=== PATIENT | female | born 1960 | race Caucasian/White ===

== ENCOUNTER → 2016-07-30 | Outpatient (CLI) | payer OTHER ==
[2016-07-30 10:22] LABS: Basophils % (A) 1 %; CH 32.5; CHCM 33.8; Eosinophils # (A) 0.2 k/uL (0-0.7); Eosinophils % (A) 4 %; HCT 43.8 % (34.0-46.0); HDW 2.53; HGB 14.3 gm/dL (11.4-16.0); Luc # (Auto) 0.09; Luc % (Auto) 2; Lymphocytes # (A) 1.2 k/uL (1.0-4.8); Lymphocytes % (A) 27 %; MCH 31.5 pg (25.0-35.0); MCHC 32.7 g/dL (31.0-37.0); MCV 96.3 fL (80.0-100.0); Mean Platelet Volume 6.7; Monocytes # (A) 0.3 k/uL (0-1.0); Monocytes % (A) 6 %; Neutrophils # (A) 2.6 k/uL (1.3-7.7); Neutrophils % (A) 61 %; RBC 4.54 m/uL (3.80-5.40); RDW 12.4 % (11.5-15.5); WBC 4.3 k/uL (3.8-10.6); WBC (Perox) 4.43
[2016-07-30 11:19] LABS: ALT 81 U/L (9-52); AST 51 U/L (14-36); Alkaline Phosphatase 94 U/L (38-126); Anion Gap 12 mmol/L; Blood Urea Nitrogen 14 mg/dL (7-17); Calcium 9.6 mg/dL (8.4-10.2); Carbon Dioxide 22 mmol/L (22-30); Chloride 111 mmol/L (98-107); Glucose 121 mg/dL (74-99); Non-African American GFR(MDRD) >60 (>60 ml/min/1.73 sqM); Potassium 4.5 mmol/L (3.5-5.1); Sodium 145 mmol/L (137-145); Total Bilirubin 0.6 mg/dL (0.2-1.3); Total Protein 7.5 g/dL (6.3-8.2)
== END | disposition home or self-care (01) ==
LOC: LABWHC1 09:21
PROVIDERS: ATTEND Internal Medicine Medical Oncology
DX: C50.811 Malignant neoplasm of overlapping sites of right female breast (principal); B19.20 Unspecified viral hepatitis C without hepatic coma
CPT/HCPCS: 36415; 80053; 85025; 86300

== ENCOUNTER 2018-02-13 20:58 | Emergency (ER) | payer OTHER ==
[2018-02-13 21:06] VITALS: BP 141/79; PULSE 96; RESP 18; TEMP 98.9
--- NOTE | 2018-02-13 21:23 | ED ---
Lower Extremity Injury HPI - General Chief Complaint: Extremity Injury, Lower Stated Complaint: foot injury Time Seen by Provider: 02/13/18 21:09 Source: patient, RN notes reviewed Mode of arrival: ambulatory Limitations: no limitations - History of Present Illness Initial Comments: This is a 57-year-old female who presents to the emergency department with chief complaint of right foot injury. Patient reports yesterday her and her were moving a picnic table with his truck. She states that tree branches were in the way so to prevent them from scratching the truck, she was standing pushing them out of the way as he drove through with the picnic table. She states that as he drove by, the truck tire caught the back of her boot and constricted onto her foot. Patient states that she was wearing laced up boots and the laces became tight on her foot.. She denies the tire actually hitting her foot. She states that since that time she has had pain with bearing weight and ambulating. She states that the swelling has progressively worsened. She states the pain is at the lateral aspect of the right foot. Denies any other injuries or trauma. Denies fever, chills, chest pain, shortness of breath, abdominal pain, nausea or vomiting, numbness or tingling, headache or vision changes. - Related Data Allergies Allergy/AdvReac Type Severity Reaction Status Date / Time No Known Allergies Allergy Verified 02/13/18 21:06 Review of Systems ROS Statement: Those systems with pertinent positive or pertinent negative responses have been documented in the HPI. ROS Other: All systems not noted in ROS Statement are negative. Past Medical History Past Medical History: Cancer Additional Past Medical History / Comment(s): breast History of Any Multi-Drug Resistant Organisms: None Reported Past Surgical History: Adenoidectomy, Breast Surgery, Tonsillectomy Past Psychological History: No Psychological Hx Reported Smoking Status: Current every day smoker Past Alcohol Use History: Daily Past Drug Use History: Marijuana General Exam - General Exam Comments Initial Comments: General: Awake and alert, well-developed; in no apparent distress. HEENT: Head atraumatic, normocephalic. Pupils are equal, round and reactive to light. Extraocular movements intact. Oropharynx moist without erythema or exudate. Neck: Supple. Normal ROM. Cardiovascular: Regular rate and rhythm. No murmurs, rubs or gallops. Chest symmetrical. Respiratory: Lungs clear to auscultation bilaterally. No wheezes, rales or rhonchi. Normal respiratory effort with no use of accessory muscles. Musculoskeletal: Normal ROM of right foot and ankle however pain is elicited with plantar flexion. There is ecchymosis and generalized soft tissue swelling to the lateral aspect of the proximal right foot. No obvious gross deformities. Sensation is intact. Pedal pulses are 2+ equal and palpable bilaterally. Skin: [place], warm and dry. Neurological: Alert and oriented x3. CN II-XII grossly intact. Speech is fluent and answers are appropriate. No focal neuro deficits. Psychiatric: Normal mood and affect. No overt signs of depression or anxiety noted. Limitations: no limitations Course Vital Signs 02/13/18 21:03 Temperature 98.9 F Pulse Rate 96 Respiratory 18 Rate Blood Pressure 141/79 O2 Sat by Pulse 98 Oximetry Medical Decision Making - Medical Decision Making This is a 57-year-old female who presents to the emergency department with chief complaint of right foot injury. Patient reports pain and swelling to the foot after her 's truck tire became stuck on her boot causing it to constrict around her foot. Patient is bearing weight and ambulating, however pain is elicited. There is generalized soft tissue swelling and ecchymosis at the lateral aspect of the right ankle. X-rays of the foot and ankle were obtained which revealed no acute abnormalities. Recommend rest, ice, elevation and ibuprofen or Tylenol as needed. Recommended follow-up with orthopedics if no improvement of symptoms within the next 1 week. Patient's vitals are stable and she is in no acute distress. She will be discharged home at this time. All questions were answered. - Radiology Data Radiology results: report reviewed, image reviewed X-ray right ankle impression: No acute abnormality of the right ankle. X-ray right foot impression: Negative right foot exam. Disposition Clinical Impression: Contusion of right foot Disposition: HOME SELF-CARE Condition: Good Instructions: Foot Contusion (ED) Additional Instructions: Please follow-up with orthopedics if no improvement of symptoms within 1 week. Please follow up with primary care provider within 1-2 days. Return to emergency department if symptoms should worsen or any concerns arise. Is patient prescribed a controlled substance at d/c from ED?: No Referrals: None,Stated [Primary Care Provider] - 1-2 days Ishan Bojorquez MD [STAFF PHYSICIAN] - 1-2 days Time of Disposition: 21:54
--- NOTE | 2018-02-13 21:46 | XR ---
EXAMINATION TYPE: XR ankle complete RT DATE OF EXAM: 02/13/2018 COMPARISON: NONE HISTORY: Ankle pain TECHNIQUE: 3 views FINDINGS: There is some deformity of the distal fibula consistent with old healed fracture. I see no acute fracture nor dislocation. Ankle mortise is anatomic. IMPRESSION: No acute abnormality of the right ankle.
--- NOTE | 2018-02-13 21:47 | XR ---
EXAMINATION TYPE: XR foot complete RT DATE OF EXAM: 02/13/2018 COMPARISON: NONE HISTORY: Ankle pain TECHNIQUE: 3 views FINDINGS: I see no fracture nor dislocation. Metatarsals are intact. Joint spaces are fairly normal. IMPRESSION: Negative right foot exam.
== END 2018-02-13 22:07 | disposition home or self-care (01) ==
LOC: EC 20:58
DX: S90.31XA Contusion of right foot, initial encounter (principal); F17.200 Nicotine dependence, unspecified, uncomplicated; Z85.3 Personal history of malignant neoplasm of breast; Z98.890 Other specified postprocedural states; W49.09XA Other specified item causing external constriction, initial encounter; Y93.89 Activity, other specified
CPT/HCPCS: 99283

== ENCOUNTER 2021-02-26 07:14 | Observation (INO) | payer OTHER ==
[2021-02-26] MEDS ORDERED: ACETAMINOPHEN TAB 325 MG TAB PO PRN (07:35)
[2021-02-26] MEDS ORDERED: ACETAMINOPHEN TAB 325 MG TAB PO STA (07:35)
[2021-02-26] MEDS ORDERED: ALBUTEROL HFA INHALER INHALATION PRN (07:35)
[2021-02-26] MEDS ORDERED: ALBUTEROL HFA INHALER INHALATION STA (07:35)
--- NOTE | 2021-02-26 07:37 | ED ---
General Adult HPI - General Chief complaint: Upper Respiratory Infection Stated complaint: Cough Time Seen by Provider: 02/26/21 07:29 Source: patient, RN notes reviewed Mode of arrival: ambulatory Limitations: no limitations - History of Present Illness Initial comments: Patient is a pleasant 60-year-old female presenting to the emergency Department with cough. Symptoms started following patient vomiting or house for bugs 2 days ago. Patient does have cough. Patient states when she coughs a lot there may be minimal shortness of breath associated. Patient feels slightly achy. No fevers at home. No history of chronic lung problems however patient is a smoker. No leg pain or leg swelling. Patient feels like she can taste the bug spray in her mouth still. Patient has not been immunized for COVID-19 infection - Related Data Allergies Allergy/AdvReac Type Severity Reaction Status Date / Time No Known Allergies Allergy Verified 02/13/18 21:06 Review of Systems ROS Statement: Those systems with pertinent positive or pertinent negative responses have been documented in the HPI. ROS Other: All systems not noted in ROS Statement are negative. Constitutional: Denies: fever Eyes: Denies: eye pain ENT: Denies: ear pain Respiratory: Reports: as per HPI, cough Cardiovascular: Denies: chest pain Endocrine: Denies: fatigue Gastrointestinal: Denies: abdominal pain Genitourinary: Denies: urgency Musculoskeletal: Denies: back pain Skin: Denies: rash Neurological: Denies: weakness Past Medical History Past Medical History: Cancer Additional Past Medical History / Comment(s): breast History of Any Multi-Drug Resistant Organisms: None Reported Past Surgical History: Adenoidectomy, Breast Surgery, Tonsillectomy Past Psychological History: No Psychological Hx Reported Smoking Status: Current every day smoker Past Alcohol Use History: Daily Past Drug Use History: Marijuana General Exam Limitations: no limitations General appearance: alert, in no apparent distress Head exam: Present: normocephalic Eye exam: Present: normal appearance Neck exam: Present: normal inspection Respiratory exam: Present: wheezes Cardiovascular Exam: Present: tachycardia GI/Abdominal exam: Present: soft. Absent: tenderness Extremities exam: Present: normal inspection. Absent: pedal edema, calf tenderness Neurological exam: Present: alert Psychiatric exam: Present: normal affect, normal mood Skin exam: Present: normal color Course Vital Signs 02/26/21 02/26/21 07:19 07:33 Temperature 99.7 F H Pulse Rate 122 H Respiratory 20 23 Rate Blood Pressure 128/79 O2 Sat by Pulse 88 L Oximetry EKG Findings - EKG Comments: EKG Findings:: Sinus tachycardia with rate of 118. MS 128. QRS 74. QT 3:30. QTC 462. Normal axis. Normal QRS. Nonspecific ST-T. Medical Decision Making - Medical Decision Making Patient reevaluated and feels somewhat better. Pulse ox 94% on 2 L nasal cannula. Patient updated. Case discussed with Dr. De Souza, who will admit covering hospital call. - Lab Data Result diagrams: 02/26/21 07:50 02/26/21 07:50 Lab Results 02/26/21 02/26/21 02/26/21 Range/Units 07:50 07:50 07:50 WBC 13.0 H (3.8-10.6) k/uL RBC 4.73 (3.80-5.40) m/uL Hgb 16.0 (11.4-16.0) gm/dL Hct 45.5 (34.0-46.0) % MCV 96.2 (80.0-100.0) fL MCH 33.8 (25.0-35.0) pg MCHC 35.1 (31.0-37.0) g/dL RDW 11.9 (11.5-15.5) % Plt Count 223 (150-450) k/uL MPV 7.1 Neutrophils % 80 % Lymphocytes % 13 % Monocytes % 5 % Eosinophils % 1 % Basophils % 0 % Neutrophils # 10.3 H (1.3-7.7) k/uL Lymphocytes # 1.7 (1.0-4.8) k/uL Monocytes # 0.7 (0-1.0) k/uL Eosinophils # 0.1 (0-0.7) k/uL Basophils # 0.0 (0-0.2) k/uL Sodium 138 (137-145) mmol/L Potassium 4.5 (3.5-5.1) mmol/L Chloride 107 (98-107) mmol/L Carbon Dioxide 21 L (22-30) mmol/L Anion Gap 10 mmol/L BUN 13 (7-17) mg/dL Creatinine 0.76 (0.52-1.04) mg/dL Est GFR (CKD-EPI)AfAm >90 (>60 ml/min/1.73 sqM) Est GFR (CKD-EPI)NonAf 86 (>60 ml/min/1.73 sqM) Glucose 123 H (74-99) mg/dL Plasma Lactic Acid Frank 1.1 (0.7-2.0) mmol/L Calcium 9.9 (8.4-10.2) mg/dL Magnesium 1.9 (1.6-2.3) mg/dL Total Bilirubin 1.1 (0.2-1.3) mg/dL AST 48 H (14-36) U/L ALT 62 H (4-34) U/L Alkaline Phosphatase 97 (38-126) U/L Lactate Dehydrogenase 712 H (313-618) U/L C-Reactive Protein 1.3 H (<1.0) mg/dL Total Protein 7.9 (6.3-8.2) g/dL Albumin 4.5 (3.5-5.0) g/dL Coronavirus (PCR) (Not Detectd) 02/26/21 Range/Units 07:50 WBC (3.8-10.6) k/uL RBC (3.80-5.40) m/uL Hgb (11.4-16.0) gm/dL Hct (34.0-46.0) % MCV (80.0-100.0) fL MCH (25.0-35.0) pg MCHC (31.0-37.0) g/dL RDW (11.5-15.5) % Plt Count (150-450) k/uL MPV Neutrophils % % Lymphocytes % % Monocytes % % Eosinophils % % Basophils % % Neutrophils # (1.3-7.7) k/uL Lymphocytes # (1.0-4.8) k/uL Monocytes # (0-1.0) k/uL Eosinophils # (0-0.7) k/uL Basophils # (0-0.2) k/uL Sodium (137-145) mmol/L Potassium (3.5-5.1) mmol/L Chloride (98-107) mmol/L Carbon Dioxide (22-30) mmol/L Anion Gap mmol/L BUN (7-17) mg/dL Creatinine (0.52-1.04) mg/dL Est GFR (CKD-EPI)AfAm (>60 ml/min/1.73 sqM) Est GFR (CKD-EPI)NonAf (>60 ml/min/1.73 sqM) Glucose (74-99) mg/dL Plasma Lactic Acid Frank (0.7-2.0) mmol/L Calcium (8.4-10.2) mg/dL Magnesium (1.6-2.3) mg/dL Total Bilirubin (0.2-1.3) mg/dL AST (14-36) U/L ALT (4-34) U/L Alkaline Phosphatase (38-126) U/L Lactate Dehydrogenase (313-618) U/L C-Reactive Protein (<1.0) mg/dL Total Protein (6.3-8.2) g/dL Albumin (3.5-5.0) g/dL Coronavirus (PCR) Not Detected (Not Detectd) - Radiology Data Radiology results: image reviewed (Chest x-ray shows chronic changes without acute process) Disposition Clinical Impression: COPD with acute exacerbation Disposition: ADMITTED IP TO THIS HOSP Is patient prescribed a controlled substance at d/c from ED?: No Referrals: None,Stated [Primary Care Provider] - 1-2 days Decision Time: 08:55
[2021-02-26 08:09] LABS: Basophils % (A) 0 %; Eosinophils # (A) 0.1 k/uL (0-0.7); Eosinophils % (A) 1 %; HCT 45.5 % (34.0-46.0); Lymphocytes # (A) 1.7 k/uL (1.0-4.8); Lymphocytes % (A) 13 %; MCH 33.8 pg (25.0-35.0); MCHC 35.1 g/dL (31.0-37.0); MCV 96.2 fL (80.0-100.0); Mean Platelet Volume 7.1; Monocytes # (A) 0.7 k/uL (0-1.0); Monocytes % (A) 5 %; Neutrophils # (A) 10.3 k/uL (1.3-7.7); Neutrophils % (A) 80 %; Platelet Count 223 k/uL (150-450); RBC 4.73 m/uL (3.80-5.40); RDW 11.9 % (11.5-15.5)
--- NOTE | 2021-02-26 08:11 | XR ---
EXAMINATION TYPE: XR chest 1V portable DATE OF EXAM: 02/26/2021 COMPARISON: NONE HISTORY: Shortness of breath and wheeze for 2 days. Suspected COVID pneumonia. TECHNIQUE: Single frontal view of the chest is obtained. FINDINGS: Reticular interstitial prominence bilaterally favors chronic parenchymal changes. There is no focal air space opacity, pleural effusion, or pneumothorax seen. The cardiac silhouette size is within normal limits. The osseous structures are demineralized. Surgical clips right axillary regio n noted. Overlying EKG leads. IMPRESSION: Chronic changes without acute pulmonary process.
[2021-02-26 08:23] LABS: African American GFR (CKD) >90 (>60 ml/min/1.73 sqM); Albumin 4.5 g/dL (3.5-5.0); Anion Gap 10 mmol/L; Blood Urea Nitrogen 13 mg/dL (7-17); Calcium 9.9 mg/dL (8.4-10.2); Carbon Dioxide 21 mmol/L (22-30); Chloride 107 mmol/L (98-107); Glucose 123 mg/dL (74-99); Non-African American GFR(CKD) 86 (>60 ml/min/1.73 sqM); Potassium 4.5 mmol/L (3.5-5.1); Sodium 138 mmol/L (137-145); Total Protein 7.9 g/dL (6.3-8.2)
[2021-02-26 08:24] LABS: ALT 62 U/L (4-34); AST 48 U/L (14-36); Alkaline Phosphatase 97 U/L (38-126); LDH 712 U/L (313-618); Magnesium 1.9 mg/dL (1.6-2.3); Total Bilirubin 1.1 mg/dL (0.2-1.3)
[2021-02-26 08:35] LABS: C Reactive Protein 1.3 mg/dL (<1.0)
[2021-02-26] MEDS ORDERED: IPRATROPIUM-ALBUTEROL 3 ML NEB INHALATION PRN (08:55)
[2021-02-26] MEDS ORDERED: methylPREDNISolone SOD SUCCI 125 MG/2 ML VIAL IV STA (08:55)
[2021-02-26 09:03] LABS: Partial Thromboplastin Time 27.2 sec (22.0-30.0); Prothrombin Time 10.8 sec (9.0-12.0)
[2021-02-26 11:24] LABS: Ferritin 285.3 ng/mL (10.0-291.0)
[2021-02-26] MEDS: AZITHROMYCIN 500 MG in SODIUM CHLORIDE 0.9% 250 ML IVPB SCH (11:35)
[2021-02-26] MEDS: IPRATROPIUM-ALBUTEROL 3 ML NEB INHALATION SCH ×3 (11:37→20:03)
--- NOTE | 2021-02-26 12:51 | P.CNPUL ---
History of Present Illness Consult date: 02/26/21 Requesting physician: Arnulfo De Souza Reason for consult: dyspnea Chief complaint: Shortness of breath History of present illness: This is a pleasant 60-year-old female patient with a history of right-sided breast cancer with previous lumpectomy status post chemoradiation back in 2013. Denies any recurrence. She has a 40+ year pack per day smoking history. Daily alcohol use. Marijuana use. Not on any inhalers or oxygen outpatient setting. Had not been seen by pulmonology in the past. 2 days ago she was spraying her house for bedbugs and felt the odor to be quite strong. She came in the emergency room this morning with worsening shortness of breath, cough and congestion. Chest x-ray reveals evidence of COPD but no acute pulmonary process. Count 13.0. Hemoglobin 16.0. Sodium 138. Potassium 4.5. Creatinine 0.76. AST 48, ALT 62. LDH 713. C-reactive protein 1.3. Pro calcitonin 0.13. Gonzalez virus not detected. She has not been vaccinated. She has been initiated on DuoNeb inhalations, IV Solu-Medrol, antibiotics in the form of ceftriaxone and azithromycin. She is seen today in consultation in the emergency room. She is currently sitting up on the stretcher. Awake and alert in no acute distress. She states she is breathing a bit easier than she was earlier this morning. No fever chills. No productive cough. No hemoptysis. She was hypoxemic on arrival at 88% on room air. She is 93% now on 2 L/m per nasal cannula. Review of Systems REVIEW OF SYSTEMS: CONSTITUTIONAL: Denies any recent significant weight loss or weight gain. EYES: Denies change in vision. EARS, NOSE, MOUTH, THROAT: Denies headaches, denies sore throat. CARDIOVASCULAR: Denies chest pain, palpitations or syncopal episodes. RESPIRATORY: Positive for shortness of breath, cough, congestion no hemoptysis. GASTROINTESTINAL: Denies change in appetite, denies abdominal pain GENITOURINARY: Denies hematuria, denies infections. MUSKULOSKELETAL: Denies pain, denies swelling. INTEGUMENTARY: Denies rash, denies eczema. NEUROLOGICAL: Denies recent memory loss, no recent seizure activity. PSYCHIATRIC: Denies anxiety, denies depression. HEMATOLOGIC/LYMPHATIC: Denies anemia, denies enlarged lymph nodes. s Past Medical History Past Medical History: Cancer Additional Past Medical History / Comment(s): breast History of Any Multi-Drug Resistant Organisms: None Reported Past Surgical History: Adenoidectomy, Breast Surgery, Tonsillectomy Past Psychological History: No Psychological Hx Reported Smoking Status: Current every day smoker Past Alcohol Use History: Daily Past Drug Use History: Marijuana Medications and Allergies Home Medications Medication Instructions Recorded Confirmed Type No Known Home Medications 02/26/21 02/26/21 History Allergies Allergy/AdvReac Type Severity Reaction Status Date / Time No Known Allergies Allergy Verified 02/26/21 08:58 Physical Exam Vitals: Vital Signs Temp Pulse Pulse Resp BP Pulse Ox 02/26/21 12:06 99.4 F 103 H 14 93 L 02/26/21 11:44 93 16 02/26/21 11:37 82 16 92 L 02/26/21 10:25 98.7 F 95 18 136/87 94 L 02/26/21 08:23 18 02/26/21 07:33 23 02/26/21 07:19 99.7 F H 122 H 20 128/79 88 L Intake and Output 02/25/21 02/26/21 02/26/21 22:59 06:59 14:59 Other: Weight 54.431 kg GENERAL EXAM: Alert, pleasant 60-year-old female patient, on 2 L nasal cannula,, comfortable in no apparent distress. HEAD: Normocephalic. EYES: Normal reaction of pupils, equal size. NOSE: Clear with pink turbinates. THROAT: No erythema or exudates. NECK: No masses, no JVD. CHEST: No chest wall deformity. LUNGS: Equal air entry with no crackles, wheeze, rhonchi or dullness. Diminished. CVS: S1 and S2 normal with no audible murmur, regular rhythm. ABDOMEN: No hepatosplenomegaly, normal bowel sounds, no guarding or rigidity. SPINE: No scoliosis or deformity SKIN: No rashes CENTRAL NERVOUS SYSTEM: No focal deficits, tone is normal in all 4 extremities. EXTREMITIES: There is no peripheral edema. No clubbing, no cyanosis. Peripheral pulses are intact. Results - Laboratory Findings CBC and BMP: 02/26/21 07:50 02/26/21 07:50 PT/INR, D-dimer PT 10.8 sec (9.0-12.0) 02/26/21 07:50 INR 1.0 (<1.2) 02/26/21 07:50 Abnormal lab findings: Abnormal Labs 02/26/21 02/26/21 02/26/21 07:50 07:50 07:50 WBC 13.0 H Neutrophils # 10.3 H Carbon Dioxide 21 L Glucose 123 H AST 48 H ALT 62 H Lactate Dehydrogenase 712 H C-Reactive Protein 1.3 H Procalcitonin 0.13 H - Diagnostic Findings Chest x-ray: image reviewed Assessment and Plan Assessment: 1 Acute hypoxemic respiratory failure secondary to an acute COPD exacerbation secondary to bed bug spray 2 Acute exacerbation of suspected chronic obstructive pulmonary disease 3 40+ year pack per day smoking history 4 Daily alcohol use 5 Marijuana use 6 History of right breast cancer status post lumpectomy and chemotherapy/radiation therapy in 2013 Plan: The patient was seen and evaluated by Dr. Beltran Chest x-ray and labs reviewed Continue DuoNeb inhalations, Symbicort Continue empiric antibiotic Would recommend follow-up in the office for full pulmonary function testing With make recommendations for her maintenance inhalers at that time We will continue to follow and make further recommendations based on her clinical status Possible discharge in the a.m. I, the cosigning physician, performed a history & physical examination of the patient. Lungs sounds are clear, diminished. Maintaining good O2 saturations in the 90s on 2 L/m per nasal cannula. I discussed the assessment and plan of care with my nurse practitioner, Jaky Carmen. I attest to the above consultation as dictated by her. Time with Patient: Greater than 30
[2021-02-26] MEDS ORDERED: PERMETHRIN 5% CREAM 60 GM TUBE TOPICAL ONE (13:00)
[2021-02-26] MEDS: methylPREDNISolone SOD SUCCI 125 MG/2 ML VIAL IV SCH ×2 (14:16→16:25)
--- NOTE | 2021-02-26 14:26 | P.HPIM ---
History of Present Illness This is a pleasant 60 years old female with no significant past medical history. She has history of breast cancer status post radiotherapy about 6 years ago presents with. Respiratory difficulty. 2 days ago patient used pesticides to get bit but she thinks she has at that home. And then she stated in the home for about a hour and a half trying to open the windows but exposed to the pesticides as she states and doing the same that she started having difficulty breathing with coughing and phlegm of unknown color but no chest pain. However she is having lower rib cage pain on both sides when she coughs. No abdominal pain or nausea vomiting. No urinary complaints. No headache or weakness or dizziness. She smokes 8 cigarettes per day, she agrees to quit. She drinks alcohol but she could not specify if every day, patient states that her last drink was about 2 days ago. Drugs. 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 She denies liver disease. She has low-grade fever of 99.7 on admission with mild leukocytosis about 13 K. She had mild elevated liver enzymes most likely secondary to alcohol affect. She thinks her rash in her legs and arms is itchy and is due to bed box and she wants to be treated. Review of Systems CONSTITUTIONAL: No fever, no malaise, no fatigue. HEENT: No recent visual problems or hearing problems. Denied any sore throat. CARDIOVASCULAR: No orthopnea, PND, no palpitations, no syncope. PULMONARY: No chest wall tenderness, no hemoptysis. GASTROINTESTINAL: No diarrhea, no nausea, no vomiting, no abdominal pain. Normoactive bowel sounds. NEUROLOGICAL: No headaches, no weakness, no numbness. HEMATOLOGICAL: Denies any bleeding or petechiae. GENITOURINARY: Denies any burning micturition, frequency, or urgency. MUSCULOSKELETAL/RHEUMATOLOGICAL: Denies any joint pain, swelling, or any muscle pain. ENDOCRINE: Denies any polyuria or polydipsia. Past Medical History Past Medical History: Cancer Additional Past Medical History / Comment(s): breast History of Any Multi-Drug Resistant Organisms: None Reported Past Surgical History: Adenoidectomy, Breast Surgery, Tonsillectomy Past Psychological History: No Psychological Hx Reported Smoking Status: Current every day smoker Past Alcohol Use History: Daily Past Drug Use History: Marijuana Medications and Allergies Home Medications Medication Instructions Recorded Confirmed Type No Known Home Medications 02/26/21 02/26/21 History Allergies Allergy/AdvReac Type Severity Reaction Status Date / Time No Known Allergies Allergy Verified 02/26/21 08:58 Physical Exam Vitals: Vital Signs Temp Pulse Pulse Resp BP Pulse Ox 02/26/21 12:06 99.4 F 103 H 14 93 L 02/26/21 11:44 93 16 02/26/21 11:37 82 16 92 L 02/26/21 10:25 98.7 F 95 18 136/87 94 L 02/26/21 08:23 18 02/26/21 07:33 23 02/26/21 07:19 99.7 F H 122 H 20 128/79 88 L Intake and Output 02/25/21 02/26/21 02/26/21 22:59 06:59 14:59 Other: Weight 54.431 kg GENERAL: The patient is alert and oriented x3, not in any acute distress. Well developed, well nourished. HEENT: Pupils are round and equally reacting to light. EOMI. No scleral icterus. No conjunctival pallor. Normocephalic, atraumatic. No pharyngeal erythema. No thyromegaly. CARDIOVASCULAR: S1 and S2 present. No murmurs, rubs, or gallops. -PULMONARY: Chest is clear to auscultation, no wheezing or crackles. Decreased air entry on both sides with limited chest movement ABDOMEN: Soft, nontender, nondistended, normoactive bowel sounds. No palpable organomegaly. MUSCULOSKELETAL: No joint swelling or deformity. EXTREMITIES: No cyanosis, clubbing, or pedal edema. NEUROLOGICAL: Gross neurological examination did not reveal any focal deficits. -SKIN: Mild Macular and papular rash on the legs, forearms and a total of the lower back. Associated with itching. No petechiae Results CBC & Chem 7: 02/26/21 07:50 02/26/21 07:50 Labs: Abnormal Lab Results - Last 24 Hours (Table) 02/26/21 02/26/21 02/26/21 Range/Units 07:50 07:50 07:50 WBC 13.0 H (3.8-10.6) k/uL Neutrophils # 10.3 H (1.3-7.7) k/uL Carbon Dioxide 21 L (22-30) mmol/L Glucose 123 H (74-99) mg/dL AST 48 H (14-36) U/L ALT 62 H (4-34) U/L Lactate Dehydrogenase 712 H (313-618) U/L C-Reactive Protein 1.3 H (<1.0) mg/dL Procalcitonin 0.13 H (0.02-0.09) ng/mL Thrombosis Risk Factor Assmnt - Choose All That Apply Each Factor Represents 1 point: Age 41-60 years Other Risk Factors: No Other congenital or acquired thrombophilia - If yes, enter type in comment: No Thrombosis Risk Factor Assessment Total Risk Factor Score: 1 Thrombosis Risk Factor Assessment Level: Low Risk Assessment and Plan Assessment: Acute dyspnea suspicious for acute COPD exacerbation with possible acute tracheobronchitis Mild macular papular itchy rash and legs and forearms and lower tract. Rule out bedbugs. Nicotine dependence, she is counseled and agrees to the nicotine patch Possible alcohol abuse Remote history of breast cancer Plan: This is a pleasant 60 years old female was admitted with dyspnea suspicious for COPD and tracheobronchitis. Continue with steroids and breathing treatment Continue with ceftriaxone and Zithromax. One-time dose of permethrin Order nicotine patch and CIWA protocol and thiamine Labs and medication were reviewed.. Continue same treatment. Continue with symptomatic treatment. Resume home medication. Monitor lytes and vitals. DVT and GI prophylaxis. Further recommendations depends on the clinical course of the patient DVT prophylaxis: Subcutaneous heparin GI Prophylaxis: Pepcid
[2021-02-26] MEDS: NICOTINE 14MG/24HR PATCH TRANSDERM SCH (16:28)
[2021-02-26] MEDS: THIAMINE 100 MG TAB PO SCH (16:28)
[2021-02-26] MEDS: SYMBICORT 160-4.5 MCG INHALER INHALATION SCH (20:03)
[2021-02-26] MEDS: FAMOTIDINE 20 MG/2 ML VIAL IV SCH (21:32)
[2021-02-26] MEDS: HEPARIN SODIUM,PORCINE/PF 5,000 UNIT/0.5 ML SYRINGE SQ SCH (21:32)
[2021-02-27] MEDS: methylPREDNISolone SOD SUCCI 125 MG/2 ML VIAL IV SCH ×3 (01:18→12:27)
[2021-02-27] MEDS: SYMBICORT 160-4.5 MCG INHALER INHALATION SCH (07:52)
[2021-02-27] MEDS: IPRATROPIUM-ALBUTEROL 3 ML NEB INHALATION SCH ×3 (07:52→16:32)
[2021-02-27 07:53] VITALS: RESP 16
[2021-02-27] MEDS: NICOTINE 14MG/24HR PATCH TRANSDERM SCH ×2 (09:11→09:15)
[2021-02-27] MEDS: FAMOTIDINE 20 MG/2 ML VIAL IV SCH (09:11)
[2021-02-27] MEDS: HEPARIN SODIUM,PORCINE/PF 5,000 UNIT/0.5 ML SYRINGE SQ SCH (09:11)
[2021-02-27] MEDS: THIAMINE 100 MG TAB PO SCH (09:12)
[2021-02-27] MEDS: AZITHROMYCIN 500 MG in SODIUM CHLORIDE 0.9% 250 ML IVPB SCH (10:29)
--- NOTE | 2021-02-27 11:25 | P.PN ---
Subjective Progress Note Date: 02/27/21 Principal diagnosis: COPD exacerbation This is a pleasant 60-year-old female patient with a history of right-sided breast cancer with previous lumpectomy status post chemoradiation back in 2013. Denies any recurrence. She has a 40+ year pack per day smoking history. Daily alcohol use. Marijuana use. Not on any inhalers or oxygen outpatient setting. Had not been seen by pulmonology in the past. 2 days ago she was spraying her house for bedbugs and felt the odor to be quite strong. She came in the emergency room this morning with worsening shortness of breath, cough and congestion. Chest x-ray reveals evidence of COPD but no acute pulmonary process. Count 13.0. Hemoglobin 16.0. Sodium 138. Potassium 4.5. Creatinine 0.76. AST 48, ALT 62. LDH 713. C-reactive protein 1.3. Pro calcitonin 0.13. Gonzalez virus not detected. She has not been vaccinated. She has been initiated on DuoNeb inhalations, IV Solu-Medrol, antibiotics in the form of ceftriaxone and azithromycin. She is seen today in consultation in the emergency room. She is currently sitting up on the stretcher. Awake and alert in no acute distress. She states she is breathing a bit easier than she was earlier this morning. No fever chills. No productive cough. No hemoptysis. She was hypoxemic on arrival at 88% on room air. She is 93% now on 2 L/m per nasal cannula. The patient is seen today 12/27/2020 in follow-up on the regular medical floor. She is currently sitting up in a chair at the bedside. Awake and alert in no acute distress. No worsening shortness of breath, cough or congestion. States her breathing is back to her baseline. She is maintaining O2 saturations in the 90s on room air. She's afebrile. Blood cultures reveal no growth. She's been maintained on IV Solu-Medrol, DuoNeb inhalations, Symbicort. Antibiotics in the form of ceftriaxone and azithromycin. NicoDerm patch in place. Heparin for DVT prophylaxis. Objective - Vital Signs Vital signs: Vital Signs Temp 98.4 F 02/27/21 07:00 Pulse 101 H 02/27/21 08:04 Resp 16 02/27/21 08:04 BP 113/72 02/27/21 07:00 Pulse Ox 91 L 02/27/21 07:52 Intake & Output 02/26/21 02/27/21 02/27/21 18:59 06:59 18:59 Intake Total 180 Balance 180 Weight 54.431 kg Intake: Oral 180 Other: Voiding Method Toilet Toilet # Voids 2 3 - Exam GENERAL EXAM: Alert, active, 60-year-old female patient, on room air, comfortable in no apparent distress. HEAD: Normocephalic. EYES: Normal reaction of pupils, equal size. NOSE: Clear with pink turbinates. THROAT: No erythema or exudates. NECK: No masses, no JVD. CHEST: No chest wall deformity. LUNGS: Equal air entry with no crackles, wheeze, rhonchi or dullness. Diminished. CVS: S1 and S2 normal with no audible murmur, regular rhythm. ABDOMEN: No hepatosplenomegaly, normal bowel sounds, no guarding or rigidity. SPINE: No scoliosis or deformity SKIN: No rashes CENTRAL NERVOUS SYSTEM: No focal deficits, tone is normal in all 4 extremities. EXTREMITIES: There is no peripheral edema. No clubbing, no cyanosis. Peripheral pulses are intact. - Labs CBC & Chem 7: 02/26/21 07:50 02/26/21 07:50 Labs: Abnormal Lab Results - Last 24 Hours (Table) 02/26/21 Range/Units 07:50 Procalcitonin 0.13 H (0.02-0.09) ng/mL Microbiology - Last 24 Hours (Table) 02/26/21 07:50 Blood Culture - Preliminary Blood No Growth after 24 hours 02/26/21 07:50 Blood Culture - Preliminary Blood No Growth after 24 hours Assessment and Plan Assessment: 1 Acute hypoxemic respiratory failure secondary to an acute COPD exacerbation secondary to bed bug spray exposure 2 Acute exacerbation of suspected chronic obstructive pulmonary disease 3 40+ year pack per day smoking history 4 Daily alcohol use 5 Marijuana use 6 History of right breast cancer status post lumpectomy and chemotherapy/radiation therapy in 2013 Plan: The patient was seen and evaluated by Dr. Beltran Cleared for discharge from the pulmonary standpoint Continue Symbicort, albuterol Complete a prednisone taper Follow-up in the office in 1-2 weeks' Again educated regarding the importance of complete smoking cessation NicoDerm patch is offered I, the cosigning physician, performed a history & physical examination of the patient. Lungs sounds are clear, diminished. Maintaining good O2 saturations in the 90s on room air. I discussed the assessment and plan of care with my nurse practitioner, Jaky Carmen. I attest to the above note as dictated by her.
[2021-02-27 15:39] VITALS: BP 119/79; TEMP 98.3
[2021-02-27 16:34] VITALS: PULSE 100
[2021-02-27] MEDS ORDERED: FAMOTIDINE 20 MG TAB PO SCH (21:00)
== END 2021-02-27 16:49 | disposition home or self-care (01) ==
LOC: EC 07:14 → 6NMEDSUR 08:57
PROVIDERS: ADMIT Internal Medicine; ATTEND Internal Medicine
DX: J44.1 Chronic obstructive pulmonary disease with (acute) exacerbation (principal); J96.01 Acute respiratory failure with hypoxia; A41.9 Sepsis, unspecified organism; R21 Rash and other nonspecific skin eruption; R74.8 Abnormal levels of other serum enzymes; F17.210 Nicotine dependence, cigarettes, uncomplicated; Z77.098 Contact with and (suspected) exposure to other hazardous, chiefly nonmedicinal, chemicals; Z20.822 Contact with and (suspected) exposure to COVID-19; Z85.3 Personal history of malignant neoplasm of breast; Z98.890 Other specified postprocedural states; Z92.21 Personal history of antineoplastic chemotherapy; Z92.3 Personal history of irradiation; Z71.6 Tobacco abuse counseling
CPT/HCPCS: 96376 ×2; 96366 ×2; 96372 ×2; 96375 ×2; 96365; 96367; 99284; 99285; 36415; 94640 ×4; 94760; 93005; 80053; 82728; 83605; 83615; 83735; 85025; 85610; 85730; 86140; 87040; 84145; 87635; 71045; G0378 ×2; J2930 ×2; J0456 ×2; J0696 ×2; J1644 ×2

== ENCOUNTER → 2023-01-18 | Outpatient (CLI) | payer OTHER ==
[~2023-01-18] MED LIST: IODINE/POTASSIUM IODIDE 14 ML BOTTLE ONE
--- NOTE | 2023-01-24 10:34 | NM ---
EXAMINATION TYPE: NM DatScan Brain SPECT DATE OF EXAM: 01/18/2023 COMPARISON: NONE HISTORY: Tremor TECHNIQUE: 10 drops of Lugol's solution was administered 1 hour prior to injection as a thyroid bloc olamide agent. After the administration of 4.63 mCi I-123 Ioflupane DaTscan. Images obtained 3 hours p ost injection. SPECT images of the brain were acquired with axial and coronal reconstructions. FINDINGS: The axial SPECT images demonstrate increased background activity and normal activity within the bilateral striata. Z score assessment demonstrates no diagnostic evidence of abnormality. IMPRESSION: No diagnostic evidence of idiopathic Parkinson's disease or Parkinsonian syndrome.
== END | disposition home or self-care (01) ==
LOC: RADNMMAIN 10:32
PROVIDERS: ATTEND Psychiatry & Neurology Neurology
DX: G25.0 Essential tremor (principal)
CPT/HCPCS: 78803; A9584

== ENCOUNTER 2023-09-04 17:35 | Observation (INO) | payer OTHER ==
--- NOTE | 2023-09-04 17:46 | ED ---
General Adult HPI <Nicolás Najera - Last Filed: 09/04/23 17:47> <Anastasiia Connors - Last Filed: 09/04/23 23:03> - General Stated complaint: Abd Pain Time Seen by Provider: 09/04/23 17:43 - History of Present Illness Initial comments: 63-year-old female presenting to the ED with a chief complaint of abdominal pain. Patient reports for the past 3 days has had pain in the right upper abdomen radiating to her back. Since onset, reports pain has worsened in severity. Unsure if pain is worsened by food intake. Patient reports that she is a drinker. Has had 3 beers today and 4 yesterday. Denies changes in urinary habits. (Nicolás Najera) 63-year-old presented to the ER today for complaints of nausea vomiting and epigastric pain radiating to her back. Patient has no GI history. Patient does admit to drinking daily usually 3-4 beers. Patient has never had pancreatitis. Patient states she has been vomiting for hours not able to hold anything down today. (Anastasiia Connors) - Related Data Previous Rx's Medication Instructions Recorded Albuterol Inhaler [Ventolin Hfa 1 puff INHALATION RT-TID 30 Days 02/27/21 Inhaler] #1 packet Budesonide-Formot 160-4.5 Mcg 2 puff INHALATION BID 30 Days #1 02/27/21 [Symbicort 160-4.5 Mcg Inhaler] unit Doxycycline [Vibramycin] 100 mg PO BID 7 Days #14 cap 02/27/21 Thiamine [Vitamin B-1] 100 mg PO DAILY tab 02/27/21 predniSONE 0 mg PO DIRECTED 12 Days #24 tab 02/27/21 Allergies Allergy/AdvReac Type Severity Reaction Status Date / Time No Known Allergies Allergy Verified 02/26/21 08:58 Review of Systems ROS Other: All systems not noted in ROS Statement are negative. <Nicolás Najera - Last Filed: 09/04/23 17:47> ROS Other: All systems not noted in ROS Statement are negative. <Anastasiia Connors - Last Filed: 09/04/23 23:03> ROS Statement: Those systems with pertinent positive or pertinent negative responses have been documented in the HPI. Past Medical History Past Medical History: Cancer Additional Past Medical History / Comment(s): breast History of Any Multi-Drug Resistant Organisms: None Reported Past Surgical History: Adenoidectomy, Breast Surgery, Tonsillectomy Past Psychological History: No Psychological Hx Reported Smoking Status: Current every day smoker Past Alcohol Use History: Daily Past Drug Use History: Marijuana <Nicolás Najera - Last Filed: 09/04/23 17:47> General Exam <Nicolás Najera - Last Filed: 09/04/23 17:47> <Anastasiia Connors - Last Filed: 09/04/23 23:03> - General Exam Comments Initial Comments: Visual Physical Exam Vital signs reviewed General: Well-appearing, nontoxic Head: Normocephalic, atraumatic Eyes: PERRLA, EOMI ENT: Airway patent Chest: Nonlabored breathing Skin: No visual rash, normal skin tone Neuro: Alert and oriented 3 Musculoskeletal: No gross abnormalities (Nicolás Najera) Physical Exam GENERAL: Patient is well-developed and well-nourished. Patient is nontoxic and well-hydrated and is in no distress. HENT: Normocephalic, Atraumatic. EYES: PERRL, EOMI PULMONARY: Unlabored respirations. CARDIOVASCULAR: RRR Warm and well perfused extremities ABDOMEN: Non-distended Epigastric tenderness SKIN: No rashes or bruising : Deferred NEUROLOGIC: Alert and oriented Normal speech Normal gait MUSCULOSKELETAL: Moving all extremities with no apparent injury PSYCHIATRIC: No SI/HI (Anastasiia Connors) Course Vital Signs 09/04/23 09/04/23 17:44 22:08 Temperature 97.5 F L Pulse Rate 80 75 Respiratory 16 18 Rate Blood Pressure 172/95 159/85 O2 Sat by Pulse 99 95 Oximetry Medical Decision Making <Nicolás Najera - Last Filed: 09/04/23 17:47> - Lab Data Result diagrams: 09/04/23 18:13 09/04/23 18:13 <Anastasiia Connors - Last Filed: 09/04/23 23:03> - Medical Decision Making Quicknote portion performed. Signed Nicolás Najera PA-C (Nicolás Najera) Was pt. sent in by a medical professional or institution (Dr., PA, [employer]OL [employer]KER, urgent care, hospital, or [facility]...) When possible be specific @ -No Did you speak to anyone other than the patient for history (EMS, parent, family, police, friend...)? What history was obtained from this source @ - at bedside Did you review nursing and triage notes (agree or disagree)? Why? @ -I reviewed and agree with nursing and triage notes Were old charts reviewed (outside hosp., previous admission, EMS record, old EKG, old radiological studies, urgent care reports/EKG's, [facility] records)? Report findings @ -No old charts were reviewed Differential Diagnosis (chest pain, altered mental status, abdominal pain women, abdominal pain men, vaginal bleeding, weakness, fever, dyspnea, syncope, headache, dizziness, GI bleed, back pain, seizure, CVA, palpatations, mental health)? @ -Differential Abdominal Pain Women: Appendicitis, Cholecystitis, diverticulosis, ischemic bowel, pancreatitis, hepatitis, UTI, gastroenteritis, AAA, incarcerated hernia, bowel obstruction, constipation, inflammatory bowel, hepatitis, peptic ulcer disease, splenic infarction, perforated viscus, vulvitis, ovarian torsion, PID, kidney stone, placenta abruption, this is not meant to be an all-inclusive list EKG interpreted by me (3pts min.). @ -As above X-rays interpreted by me (1pt min.). @ -None done CT interpreted by me (1pt min.). @ -None done U/S interpreted by me (1pt. min.). @ -None done What testing was considered but not performed or refused? (CT, X-rays, U/S, labs)? Why? @ -None What meds were considered but not given or refused? Why? @ -None Did you discuss the management of the patient with other professionals (professionals i.e. , PA, CARBIDE TOOL MAKER, lab, RT, psych nurse, social work instructor, lodging manager, teacher, labor relations officer, major case detective)? Give summary @ -Admitting physician Dr. Christensen Was smoking cessation discussed for >3mins.? @ -Yes Was critical care preformed (if so, how long)? @ -No Were there social determinants of health that impacted care today? How? (Homelessness, low income, unemployed, alcoholism, drug addiction, transportation, low edu. Level, literacy, decrease access to med. care, correction, rehab)? @ -Alcoholism Was there de-escalation of care discussed even if they declined (Discuss DNR or withdrawal of care, Hospice)? DNR status @ -No What co-morbidities impacted this encounter? (DM, HTN, Smoking, COPD, CAD, Cancer, CVA, ARF, Chemo, Hep., AIDS, mental health diagnosis, sleep apnea, morbid obesity)? @ -None Was patient admitted / discharged? Hospital course, mention meds given and route, prescriptions, significant lab abnormalities, going to OR and other pertinent info. @ -Admit Patient was initially seen by PA in triage, workup was initiated. Labs resulted with critical elevation of amylase and lipase consistent with pancreatitis ultrasound was unremarkable given the patient's history alcoholic pancreatitis is most likely. Results were discussed with the patient recommended pain management, n.p.o. diet IV fluids and admission to the hospital. Patient was agreeable to this. Patient reports he has no concern for withdrawal from alcoho l or nicotine. States she does not need any nicotine patches or gum. States that she does not want any medications for alcohol withdrawal at this time. Patient care was discussed with Dr. Christensen who asked saps the admission and request an alcohol level be drawn upon admission. Undiagnosed new problem with uncertain prognosis? @ -Yes Drug Therapy requiring intensive monitoring for toxicity (Heparin, Nitro, Insulin, Cardizem)? @ -No Were any procedures done? @ -No Diagnosis/symptom? @ -Alcoholic pancreatitis Acute, or Chronic, or Acute on Chronic? @ -Acute Uncomplicated (without systemic symptoms) or Complicated (systemic symptoms)? @ -Complicated Side effects of treatment? @ -No Exacerbation, Progression, or Severe Exacerbation? @ -No Poses a threat to life or bodily function? How? (Chest pain, USA, [place], pneumonia, PE, COPD, DKA, ARF, appy, cholecystitis, CVA, Diverticulitis, Homicidal, Suicidal, threat to staff... and all critical care pts) @ -Yes, can advance to ARDS or abdominal compartment syndrome, pancreatitis can also lead to type 1 diabetes. (Anastasiia Connors) - Lab Data Lab Results 09/04/23 09/04/23 09/04/23 Range/Units 18:13 18:13 18:13 WBC 7.8 (3.8-10.6) k/uL RBC 4.60 (3.80-5.40) m/uL Hgb 14.7 (11.4-16.0) gm/dL Hct 44.7 (34.0-46.0) % MCV 97.1 (80.0-100.0) fL MCH 32.0 (25.0-35.0) pg MCHC 33.0 (31.0-37.0) g/dL RDW 12.3 (11.5-15.5) % Plt Count 217 (150-450) k/uL MPV 7.5 Neutrophils % 59 % Lymphocytes % 30 % Monocytes % 5 % Eosinophils % 3 % Basophils % 1 % Neutrophils # 4.6 (1.3-7.7) k/uL Lymphocytes # 2.4 (1.0-4.8) k/uL Monocytes # 0.4 (0-1.0) k/uL Eosinophils # 0.2 (0-0.7) k/uL Basophils # 0.1 (0-0.2) k/uL Sodium 137 (137-145) mmol/L Potassium 4.2 (3.5-5.1) mmol/L Chloride 106 (98-107) mmol/L Carbon Dioxide 19 L (22-30) mmol/L Anion Gap 12 mmol/L BUN 15 (7-17) mg/dL Creatinine 0.61 (0.52-1.04) mg/dL Est GFR (CKD-EPI)AfAm >90 (>60 ml/min/1.73 sqM) Est GFR (CKD-EPI)NonAf >90 (>60 ml/min/1.73 sqM) Glucose 99 (74-99) mg/dL Plasma Lactic Acid Frank 1.6 (0.7-2.0) mmol/L Calcium 9.3 (8.4-10.2) mg/dL Total Bilirubin 0.5 (0.2-1.3) mg/dL AST 76 H (14-36) U/L ALT 100 H (4-34) U/L Alkaline Phosphatase 93 (38-126) U/L Total Protein 8.1 (6.3-8.2) g/dL Albumin 4.7 (3.5-5.0) g/dL Amylase 183 H (30-110) U/L Lipase 781 H (23-300) U/L Disposition <Cabatu,Nicolás - Last Filed: 09/04/23 17:47> Is patient prescribed a controlled substance at d/c from ED?: No <Anastasiia Connors - Last Filed: 09/04/23 23:03> Clinical Impression: Pancreatitis Disposition: ADMITTED IP TO THIS HOSP Condition: Serious
[2023-09-04 18:52] LABS: Basophils # (A) 0.1 k/uL (0-0.2); Basophils % (A) 1 %; Eosinophils # (A) 0.2 k/uL (0-0.7); Eosinophils % (A) 3 %; HCT 44.7 % (34.0-46.0); HGB 14.7 gm/dL (11.4-16.0); Lymphocytes # (A) 2.4 k/uL (1.0-4.8); Lymphocytes % (A) 30 %; MCV 97.1 fL (80.0-100.0); Mean Platelet Volume 7.5; Monocytes # (A) 0.4 k/uL (0-1.0); Monocytes % (A) 5 %; Neutrophils # (A) 4.6 k/uL (1.3-7.7); Neutrophils % (A) 59 %; Platelet Count 217 k/uL (150-450); RDW 12.3 % (11.5-15.5); WBC 7.8 k/uL (3.8-10.6)
[2023-09-04 19:20] LABS: ALT 100 U/L (4-34); AST 76 U/L (14-36); African American GFR (CKD) >90 (>60 ml/min/1.73 sqM); Albumin 4.7 g/dL (3.5-5.0); Alkaline Phosphatase 93 U/L (38-126); Amylase 183 U/L (30-110); Anion Gap 12 mmol/L; Blood Urea Nitrogen 15 mg/dL (7-17); Calcium 9.3 mg/dL (8.4-10.2); Carbon Dioxide 19 mmol/L (22-30); Chloride 106 mmol/L (98-107); Glucose 99 mg/dL (74-99); Lipase 781 U/L (23-300); Non-African American GFR(CKD) >90 (>60 ml/min/1.73 sqM); Potassium 4.2 mmol/L (3.5-5.1); Sodium 137 mmol/L (137-145); Total Bilirubin 0.5 mg/dL (0.2-1.3); Total Protein 8.1 g/dL (6.3-8.2)
--- NOTE | 2023-09-04 20:10 | US ---
EXAMINATION TYPE: US gallbladder DATE OF EXAM: 09/04/2023 COMPARISON: US 2016 CLINICAL INDICATION: Female, 63 years old with history of RUQ pain; RUQ pain x couple days, N/V TECHNIQUE: Multiple sonographic images of the right upper quadrant are obtained. FINDINGS: EXAM MEASUREMENTS: Liver Length: 16 cm Gallbladder Wall: 0.2 cm CBD: 0.5 cm Right Kidney: 9.6 x 3.5 x 5 cm Pancreas: visualized portions wnl, limited by overlying midline bowel gas Liver: wnl Gallbladder: wnl Evidence for sonographic Bojorquez's sign: no CBD: visualized portions wnl, limited by overlying bowel gas Right Kidney: wnl IMPRESSION: Negative study.
[2023-09-04] MEDS: SODIUM CHLORIDE 0.9% 1,000 ML IV SCH (21:46)
[2023-09-04] MEDS: SODIUM CHLORIDE 0.9% 1,000 ML IV ONE (21:46)
[2023-09-04] MEDS: ONDANSETRON 4 MG/2 ML VIAL IVP STA (21:49)
[2023-09-04] MEDS: FAMOTIDINE 20 MG/2 ML VIAL IV STA (21:50)
[2023-09-04] MEDS: MORPHINE SULFATE 4 MG/ML SYRINGE IVP STA (21:50)
[2023-09-04] MEDS ORDERED: NALOXONE 0.4 MG/ML 1 ML VIAL IV PRN (21:56)
[2023-09-04] MEDS ORDERED: ONDANSETRON 4 MG/2 ML VIAL IVP PRN (21:56)
[2023-09-05] MEDS: MORPHINE SULFATE 4 MG/ML SYRINGE IV PRN (06:30)
[2023-09-05 07:15] LABS: Appearance,Urine Clear (Clear); Bilirubin,Urine Negative (Negative); Blood,Urine Negative (Negative); Color,Urine Colorless; Glucose,Urine (UA) Negative (Negative); Ketones,Urine 2+ (Negative); Leukocyte Esterase,Urine Negative (Negative); Nitrite,Urine Negative (Negative); Protein,Urine Negative (Negative); Specific Gravity,Urine 1.018 (1.001-1.035); Urobilinogen,Urine <2.0 mg/dL (<2.0)
[2023-09-05] MEDS ORDERED: LORazepam 2 MG/ML INJ IV PRN ×4 (09:19)
[2023-09-05 11:00] LABS: HCT 43.6 % (34.0-46.0); HGB 14.4 gm/dL (11.4-16.0); MCH 32.6 pg (25.0-35.0); MCHC 32.9 g/dL (31.0-37.0); MCV 99.1 fL (80.0-100.0); Platelet Count 204 k/uL (150-450); RBC 4.41 m/uL (3.80-5.40); RDW 12.4 % (11.5-15.5); WBC 9.6 k/uL (3.8-10.6)
[2023-09-05 11:18] LABS: ALT 85 U/L (4-34); AST 67 U/L (14-36); African American GFR (CKD) >90 (>60 ml/min/1.73 sqM); Albumin 4.5 g/dL (3.5-5.0); Albumin/Globulin Ratio 1.4; Alkaline Phosphatase 86 U/L (38-126); Anion Gap 10 mmol/L; Blood Urea Nitrogen 11 mg/dL (7-17); Calcium 8.9 mg/dL (8.4-10.2); Carbon Dioxide 17 mmol/L (22-30); Chloride 109 mmol/L (98-107); Globulin 3.3 g/dL; Glucose 88 mg/dL (74-99); Lipase 223 U/L (23-300); Non-African American GFR(CKD) >90 (>60 ml/min/1.73 sqM); Sodium 136 mmol/L (137-145); Total Bilirubin 0.9 mg/dL (0.2-1.3); Total Protein 7.8 g/dL (6.3-8.2)
[2023-09-05 11:26] LABS: Potassium 4.5 mmol/L (3.5-5.1)
[2023-09-05] MEDS: PANTOPRAZOLE 40 MG/10 ML VIAL IVP SCH (11:44)
[2023-09-05] MEDS: MULTIVITAMINS, THERA 1 EACH TAB PO SCH (11:44)
[2023-09-05] MEDS: FOLIC ACID 1 MG TAB PO SCH (11:44)
[2023-09-05] MEDS: THIAMINE 100 MG/ML 2 ML VIAL IM STA (11:45)
[2023-09-05] MEDS: 1: MVI, ADULT NO.4 WITH VIT K 10 ML, THIAMINE 100 MG, FOLIC ACID 1 MG in SODIUM CHLORIDE IV SCH (13:05)
--- NOTE | 2023-09-05 13:16 | P.HPIM ---
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 Reports initially pain was right lateral and into the right-sided back which progressed to right upper and lower quadrant yesterday after drinking 4 tall beers and presented to the ER. Describes abdominal pain as a "jabbing sensation". Denies food intake as a trigger. Reports prior to the onset of the abdominal pain,consumed baked chicken with noodles .denies nausea and vomiting prior to admission, stated it began once in the ER. Currently nauseated. Denies chest pain, palpitations or shortness of breath. Denies lightheadedness, dizziness or focal deficits. Denies headache. Denies trauma, falls. Denies prior episodes of pancreatitis. Hematology unremarkable. Electrolytes, renal function stable, lactic acid 1.6, afebrile, normal WBC. AST 76, ALT 100, follow- up levels 67,85. Amylase 183, lipase 781 currently down to 223. UA negative. Serum alcohol 15. Gallbladder ultrasound reported negative study; visualized portions of pancreas within normal limits, limited by overlying midline bowel gas, liver within normal limits, gallbladder within normal limits, common bile duct-visualized portions within normal limits limited by overlying bowel gas, right kidney within normal limits. Receiving IV fluid hydration, NPO. Review of Systems ROS Other: All systems not noted in ROS Statement are negative. ROS Statement: Those systems with pertinent positive or pertinent negative responses have been documented in the HPI. Past Medical History Past Medical History: Cancer Additional Past Medical History / Comment(s): breast CA History of Any Multi-Drug Resistant Organisms: None Reported Past Surgical History: Adenoidectomy, Breast Surgery, Tonsillectomy Past Psychological History: No Psychological Hx Reported Smoking Status: Current every day smoker Past Alcohol Use History: Daily Additional Past Alcohol Use History / Comment(s): 3-6 beers per day Past Drug Use History: Marijuana Medications and Allergies Home Medications Medication Instructions Recorded Confirmed Type Calcium Carbonate [Calcium] 600 mg PO HS 09/05/23 09/05/23 History Multivitamin/Iron/Folic Acid 1 tab PO HS 09/05/23 09/05/23 History [Centrum Women Tablet] Primidone 50 mg PO HS 09/05/23 09/05/23 History Allergies Allergy/AdvReac Type Severity Reaction Status Date / Time No Known Allergies Allergy Verified 09/05/23 08:47 Physical Exam Vitals: Vital Signs Temp Pulse Pulse Resp BP BP Pulse Ox 09/05/23 07:00 98.7 F 82 16 132/80 91 L 09/05/23 01:49 98.1 F 76 16 132/67 93 L 09/04/23 23:49 98.2 F 81 16 161/83 95 09/04/23 23:02 98.2 F 78 16 158/91 92 L 09/04/23 22:08 75 18 159/85 95 09/04/23 17:44 97.5 F L 80 16 172/95 99 Intake and Output 09/04/23 09/05/23 09/05/23 22:59 06:59 14:59 Other: # Voids 1 Weight 60.781 kg PHYSICAL EXAM: VITAL SIGNS: [As above] GENERAL: Alert and oriented x 3, sitting up in bed, no acute distress. HEENT: Normocephalic. Conjunctivae normal. eyes normal. NECK: Supple, no JVD. No thyroid enlargement. No LNs CARDIOVASCULAR: S1, S2 regular. No murmur RESPIRATION: Unlabored, equal air entry, breath sounds diminished in the bases. No rhonchi or crackles. No bronchial breathing. ABDOMEN: Soft, nondistended, nontender . No guarding. no masses palpable. No ascites, No hepatosplenomegaly.Bowel sounds heard. LEGS: No edema. no swelling NERVOUS SYSTEM: Cranial N 2-12 grossly normal. Moves all 4 limbs. No focal deficits. Strength and sensation grossly intact.. Skin: Warm and dry, no rash Results CBC & Chem 7: 09/05/23 10:17 09/05/23 10:17 Labs: Abnormal Lab Results - Last 24 Hours (Table) 09/04/23 09/05/23 09/05/23 Range/Units 18:13 06:26 10:17 Sodium 136 L (137-145) mmol/L Chloride 109 H (98-107) mmol/L Carbon Dioxide 19 L 17 L (22-30) mmol/L AST 76 H 67 H (14-36) U/L ALT 100 H 85 H (4-34) U/L Amylase 183 H (30-110) U/L Lipase 781 H (23-300) U/L Urine Ketones 2+ H (Negative) Thrombosis Risk Factor Assmnt - Choose All That Apply Any of the Below Risk Factors Present?: Yes Each Factor Represents 1 point: Obesity (BMI >25) Other Risk Factors: Yes Each Risk Factor Represents 2 Points: Age 61-74 years Other congenital or acquired thrombophilia - If yes, enter type in comment: No Thrombosis Risk Factor Assessment Total Risk Factor Score: 3 Thrombosis Risk Factor Assessment Level: Moderate Risk Assessment and Plan Assessment: Abdominal right-sided pain, acute pancreatitis, suspect alcoholic pancreatitis, common bile duct not well-visualized on ultrasound Alcohol abuse Nicotine dependence Marijuana use History of heroin addiction, quit 25 to 35 years ago History of right breast cancer, surgical repair Plan: Continue on current medication regimen ,monitoring and symptomatic treatment. Maintain bowel rest. CIWA protocol, banana bag/IV fluid hydration ordered. General surgery consult in place. Discharge planning in progress pending general surgery evaluation, recommendations and clearance for discharge. Discharge Medication List Calcium Carbonate [Calcium] 600 mg PO HS 09/05/23 [History] Multivitamin/Iron/Folic Acid [Centrum Women Tablet] 1 tab PO HS 09/05/23 [History] Primidone 50 mg PO HS 09/05/23 [History] The impression and plan of care has been dictated as directed. : I performed a history and examination of this patient, discussed the same with the dictator. I agree with the dictator's note ,documented as a scribe. Any additional findings or plans will be noted.
--- NOTE | 2023-09-05 14:18 | P.GSCN ---
History of Present Illness Consult date: 09/05/23 History of present illness: CHIEF COMPLAINT: Abdominal pain HISTORY OF PRESENT ILLNESS: This is a 63-year-old female who presents to the hospital with complaints of abdominal pain x 4 days. She reports that the pain is located in the epigastric area to the right upper quadrant and radiates to her back. Pain also along the right side. She has been having nausea and vomiting. She denies any fever chills or sweats. Patient does have a history of alcohol abuse. Her last alcoholic drink was yesterday. She denies any prior history of pancreatitis. Past surgical history does include a . Patient denies any cardiac history and denies being on any blood thinners. Patient did have elevated lipase and mildly elevated liver enzymes. Gallbladder ultrasound showed no evidence of cholelithiasis. PAST MEDICAL HISTORY: Breast cancer PAST SURGICAL HISTORY: Adenoidectomy, Breast Surgery, Tonsillectomy MEDICATIONS: See below ALLERGIES: See below SOCIAL HISTORY: Nicotine dependence, daily alcohol use REVIEW OF SYSTEMS: CONSTITUTIONAL: Denies fever or chills. HEENT: Denies blurred vision, vision changes, or eye pain. Denies hemoptysis CARDIOVASCULAR: Denies chest pain or pressure. RESPIRATORY: No shortness of breath. GASTROINTESTINAL: See HPI for pertinent findings HEMATOLOGIC: Denies bleeding disorders. GENITOURINARY: Denies any blood in urine or increased urinary frequency. SKIN: Denies pruitis. Denies rash. PHYSICAL EXAM: VITAL SIGNS: Reviewed GENERAL: Well-developed in no acute distress. HEENT: No sclera icterus. Extraocular movements grossly intact. Moist buccal mucosa. Head is atraumatic, normocephalic. No nasal drainage. ABDOMEN: Soft. Nondistended. Tenderness with palpation right upper quadrant NEUROLOGIC: Alert and oriented. Cranial nerves II through XII grossly intact. LABORATORY DATA: WBC 9.6 Hgb 14.4 platelets 204 Sodium is 136 potassium 4.5 creatinine 0.67 Total bili 0.9 AST 76 down to 67 ALT 100 down to 85 Lipase 781 down to 223 Serum alcohol level 15 IMAGING: Gallbladder ultrasound negative study ASSESSMENT: 1. Acute pancreatitis 2. History of daily alcohol use PLAN: -Patient scheduled for HIDA scan for further evaluation of gallbladder -Start low-fat diet -Further recommendations forthcoming per HIDA scan Physician Senior Sql Server Database Developer note has been reviewed by physician. Signing provider agrees with the documented findings, assessment, and plan of care. Past Medical History Past Medical History: Cancer Additional Past Medical History / Comment(s): breast CA History of Any Multi-Drug Resistant Organisms: None Reported Past Surgical History: Adenoidectomy, Breast Surgery, Tonsillectomy Past Psychological History: No Psychological Hx Reported Smoking Status: Current every day smoker Past Alcohol Use History: Daily Additional Past Alcohol Use History / Comment(s): 3-6 beers per day Past Drug Use History: Marijuana Medications and Allergies Home Medications Medication Instructions Recorded Confirmed Type Calcium Carbonate [Calcium] 600 mg PO HS 09/05/23 09/05/23 History Multivitamin/Iron/Folic Acid 1 tab PO HS 09/05/23 09/05/23 History [Centrum Women Tablet] Primidone 50 mg PO HS 09/05/23 09/05/23 History Allergies Allergy/AdvReac Type Severity Reaction Status Date / Time No Known Allergies Allergy Verified 09/05/23 08:47 Surgical - Exam Vital Signs Temp Pulse Resp BP Pulse Ox 97.5 F L 80 16 172/95 99 09/04/23 17:44 09/04/23 17:44 09/04/23 17:44 09/04/23 17:44 09/04/23 17:44 Results - Labs 09/05/23 10:17 09/05/23 10:17 Abnormal Lab Results - Last 24 Hours (Table) 09/04/23 09/05/23 09/05/23 Range/Units 18:13 06:26 10:17 Sodium 136 L (137-145) mmol/L Chloride 109 H (98-107) mmol/L Carbon Dioxide 19 L 17 L (22-30) mmol/L AST 76 H 67 H (14-36) U/L ALT 100 H 85 H (4-34) U/L Amylase 183 H (30-110) U/L Lipase 781 H (23-300) U/L Urine Ketones 2+ H (Negative) Diabetes panel 09/04/23 09/05/23 Range/Units 18:13 10:17 Sodium 137 136 L (137-145) mmol/L Potassium 4.2 4.5 (3.5-5.1) mmol/L Chloride 106 109 H (98-107) mmol/L Carbon Dioxide 19 L 17 L (22-30) mmol/L BUN 15 11 (7-17) mg/dL Creatinine 0.61 0.67 (0.52-1.04) mg/dL Glucose 99 88 (74-99) mg/dL Calcium 9.3 8.9 (8.4-10.2) mg/dL AST 76 H 67 H (14-36) U/L ALT 100 H 85 H (4-34) U/L Alkaline Phosphatase 93 86 (38-126) U/L Total Protein 8.1 7.8 (6.3-8.2) g/dL Albumin 4.7 4.5 (3.5-5.0) g/dL Calcium panel 09/04/23 09/05/23 Range/Units 18:13 10:17 Calcium 9.3 8.9 (8.4-10.2) mg/dL Albumin 4.7 4.5 (3.5-5.0) g/dL Pituitary panel 09/04/23 09/05/23 Range/Units 18:13 10:17 Sodium 137 136 L (137-145) mmol/L Potassium 4.2 4.5 (3.5-5.1) mmol/L Chloride 106 109 H (98-107) mmol/L Carbon Dioxide 19 L 17 L (22-30) mmol/L BUN 15 11 (7-17) mg/dL Creatinine 0.61 0.67 (0.52-1.04) mg/dL Glucose 99 88 (74-99) mg/dL Calcium 9.3 8.9 (8.4-10.2) mg/dL Adrenal panel 09/04/23 09/05/23 Range/Units 18:13 10:17 Sodium 137 136 L (137-145) mmol/L Potassium 4.2 4.5 (3.5-5.1) mmol/L Chloride 106 109 H (98-107) mmol/L Carbon Dioxide 19 L 17 L (22-30) mmol/L BUN 15 11 (7-17) mg/dL Creatinine 0.61 0.67 (0.52-1.04) mg/dL Glucose 99 88 (74-99) mg/dL Calcium 9.3 8.9 (8.4-10.2) mg/dL Total Bilirubin 0.5 0.9 (0.2-1.3) mg/dL AST 76 H 67 H (14-36) U/L ALT 100 H 85 H (4-34) U/L Alkaline Phosphatase 93 86 (38-126) U/L Total Protein 8.1 7.8 (6.3-8.2) g/dL Albumin 4.7 4.5 (3.5-5.0) g/dL
[2023-09-05] MEDS: PRIMIDONE 50 MG TAB PO SCH (19:59)
[2023-09-05] MEDS: SODIUM CHLORIDE 0.9% 1,000 ML with MVI, ADULT NO.4 WITH VIT K 10 ML, THIAMINE 100 MG, F... IV ONE (20:52)
[2023-09-05] MEDS ORDERED: PRIMIDONE 50 MG TAB PO SCH (21:00)
[2023-09-06] MEDS: THIAMINE 100 MG TAB PO SCH (09:30)
--- NOTE | 2023-09-06 09:50 | NM ---
Nuclear medicine hepatobiliary scan. HISTORY: Pain. DOSAGE: The patient received 8 0z Ensure plus and 4.7 mCi of Technetium 99m Choletec. FINDINGS: There is normal hepatic extraction. The gallbladder is seen by 50 minutes. There is bilia ry to bowel clearance by 20 minutes. Ejection fraction is 85%. IMPRESSION: 1. No evidence of cholecystitis. 2. Ejection fraction of 85% which occasionally be associated with hyperdynamic gallbladder.
[2023-09-06 09:59] VITALS: BP 161/87; PULSE 75; RESP 18; TEMP 99.2
[2023-09-06 11:42] LABS: ALT 76 U/L (4-34); AST 57 U/L (14-36); African American GFR (CKD) >90 (>60 ml/min/1.73 sqM); Albumin 4.2 g/dL (3.5-5.0); Albumin/Globulin Ratio 1.4; Alkaline Phosphatase 74 U/L (38-126); Anion Gap 8 mmol/L; Blood Urea Nitrogen 11 mg/dL (7-17); Calcium 9.1 mg/dL (8.4-10.2); Carbon Dioxide 21 mmol/L (22-30); Chloride 108 mmol/L (98-107); Globulin 3.1 g/dL; Glucose 140 mg/dL (74-99); Non-African American GFR(CKD) >90 (>60 ml/min/1.73 sqM); Potassium 3.9 mmol/L (3.5-5.1); Sodium 137 mmol/L (137-145); Total Bilirubin 0.7 mg/dL (0.2-1.3); Total Protein 7.3 g/dL (6.3-8.2)
--- NOTE | 2023-09-06 12:56 | P.PN ---
Subjective Progress Note Date: 09/06/23 CHIEF COMPLAINT: Pancreatitis HISTORY OF PRESENT ILLNESS: Patient tolerating low-fat diet. Abdominal pain has improved. LFTs trending downwards. Lipase normalized at 223. Afebrile. HIDA scan no evidence of cholecystitis. Ejection fraction of 85% which occasionally be associated with hyperdynamic gallbladder. Patient seen and examined with Dr. Vang PHYSICAL EXAM: VITAL SIGNS: Reviewed. GENERAL: Well-developed in no acute distress. ABDOMEN: Soft. Nondistended. Nontender. NEUROLOGIC: Alert and oriented. Cranial nerves II through XII grossly intact. ASSESSMENT: 1. Acute pancreatitis likely due to alcohol. Has improved. 2. Hyperdynamic gallbladder PLAN: -Patient can be discharged from surgical standpoint -Recommend that patient continues a low-fat diet -Recommend follow-up outpatient with surgeon to discuss outpatient cholecystectomy -Recommend alcohol cessation Physician Weapons And Tactics Instructor note has been reviewed by physician. Signing provider agrees with the documented findings, assessment, and plan of care. Objective - Vital Signs Vital signs: Vital Signs Temp 99.2 F 09/06/23 07:00 Pulse 75 09/06/23 07:00 Resp 18 09/06/23 07:00 BP 161/87 09/06/23 07:00 Pulse Ox 98 09/06/23 07:00 FiO2 Intake & Output 09/05/23 09/06/23 09/06/23 18:59 06:59 18:59 Intake Total 118 Balance 118 Intake: Oral 118 Other: Voiding Method Toilet Toilet # Voids 2 1 - Labs CBC & Chem 7: 09/05/23 10:17 09/06/23 10:49 Labs: Abnormal Lab Results - Last 24 Hours (Table) 09/06/23 Range/Units 10:49 Chloride 108 H (98-107) mmol/L Carbon Dioxide 21 L (22-30) mmol/L Glucose 140 H (74-99) mg/dL AST 57 H (14-36) U/L ALT 76 H (4-34) U/L
--- NOTE | 2023-09-07 11:44 | P.DS ---
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 Reports initially pain was right lateral and into the right- sided back which progressed to right upper and lower quadrant yesterday after drinking 4 tall beers and presented to the ER. Describes abdominal pain as a "jabbing sensation". Denies food intake as a trigger. Reports prior to the onset of the abdominal pain,consumed baked chicken with noodles .denies nausea and vomiting prior to admission, stated it began once in the ER. Currently nauseated. Denies chest pain, palpitations or shortness of breath. Denies lightheadedness, dizziness or focal deficits. Denies headache. Denies trauma, falls. Denies prior episodes of pancreatitis. Hematology unremarkable. Electrolytes, renal function stable, lactic acid 1.6, afebrile, normal WBC. AST 76, ALT 100, follow-up levels 67,85. Amylase 183, lipase 781 currently down to 223. UA negative. Serum alcohol 15. Gallbladder ultrasound reported negative study; visualized portions of pancreas within normal limits, limited by overlying midline bowel gas, liver within normal limits, gallbladder within normal limits, common bile duct-visualized portions within normal limits limited by overlying bowel gas, right kidney within normal limits. Receiving IV fluid hydration, NPO. Significant clinical improvement. LFTs trending down, lipase normalized, 223. Minimal abdominal pain. HIDA scan reported no evidence of cholecystitis, ejection fraction 85% which occasionally is associated with hyperdynamic gallbladder. Tolerating low-fat diet. Afebrile. Patient will be discharged home today in a stable condition with guarded prognosis pending final DC recommendations and clearance per general surgery. The impression and plan of care has been dictated as directed. : I performed a history and examination of this patient, discussed the same with the dictator. I agree with the dictator's note ,documented as a scribe. Any additional findings or plans will be noted. Patient Condition at Discharge: Stable Plan - Discharge Summary New Discharge Prescriptions: New Folic Acid 1 mg PO DAILY #0 tab Thiamine [Vitamin B-1] 100 mg PO DAILY tab Continue Multivitamin/Iron/Folic Acid [Centrum Women Tablet] 1 tab PO HS Primidone 50 mg PO HS Calcium Carbonate [Calcium] 600 mg PO HS Discharge Medication List Calcium Carbonate [Calcium] 600 mg PO HS 09/05/23 [History] Multivitamin/Iron/Folic Acid [Centrum Women Tablet] 1 tab PO HS 09/05/23 [History] Primidone 50 mg PO HS 09/05/23 [History] Folic Acid 1 mg PO DAILY #0 tab 09/06/23 [Rx] Thiamine [Vitamin B-1] 100 mg PO DAILY tab 09/06/23 [Rx] Follow up Appointment(s)/Referral(s): Dwight Westbrook Jr, DO [Primary Care Provider] - 3 Days Max Vang MD [STAFF PHYSICIAN] - 1 Week Patient Instructions/Handouts: Pancreatitis (DC) Activity/Diet/Wound Care/Special Instructions: low fat diet Discharge Disposition: HOME SELF-CARE
== END 2023-09-06 14:05 | disposition home or self-care (01) ==
LOC: EC 17:35 → INTOOBSV 21:57 → 6NMEDSUR 21:57 → UNDODISIN 09-06 14:05
PROVIDERS: ADMIT Family Medicine; ATTEND Family Medicine
PROC: HZ2ZZZZ Detoxification Services for Substance Abuse Treatment (ICD-10-PCS; principal; 2023-09-04)
DX: K85.90 Acute pancreatitis without necrosis or infection, unspecified (principal); F10.20 Alcohol dependence, uncomplicated; F17.200 Nicotine dependence, unspecified, uncomplicated; Z79.51 Long term (current) use of inhaled steroids; Z79.899 Other long term (current) drug therapy; F12.90 Cannabis use, unspecified, uncomplicated; Z87.898 Personal history of other specified conditions; Z85.3 Personal history of malignant neoplasm of breast; Z98.891 History of uterine scar from previous surgery
CPT/HCPCS: 96376 ×2; 96361 ×2; 96372; 96375 ×2; 96374; 99285; 36415; 99406; 80053 ×3; 82150; 83605; 83690 ×2; 85025; 85027; 81003; 76705; 78227; G0378 ×3; G0480; A9537; J2270 ×2; J3411; J2405; J2805; J3490; C9113 ×2; 80320

== ENCOUNTER 2023-09-21 12:43 | Day surgery (SDC) | payer OTHER ==
[2023-09-21] MEDS: LACTATED RINGERS 1,000 ML IV SCH (12:57)
[2023-09-21] MEDS: DEXAMETHASONE SOD PHOSPHATE 4 MG/ML 1 ML VIAL IV ONE (13:21)
[2023-09-21] MEDS: HEPARIN SODIUM,PORCINE 5,000 UNIT/ML 1 ML VIAL SQ ONE (13:22)
[2023-09-21] MEDS: ONDANSETRON 4 MG/2 ML VIAL IVP ONE (13:22)
[2023-09-21] MEDS ORDERED: HYDROmorphone (PF) 1 MG/ML ONE (14:39)
[2023-09-21] MEDS ORDERED: PROPOFOL 10 MG/ML 20 ML VIAL IV ONE (14:39)
[2023-09-21] MEDS ORDERED: SUGAMMADEX SODIUM 200 MG/2 ML SDV IV ONE (14:39)
[2023-09-21] MEDS ORDERED: GLYCOPYRROLATE 0.2 MG/ML 2 ML VIAL ONE (14:39)
[2023-09-21] MEDS ORDERED: KETAMINE HCL IN 0.9 % NACL 50 MG/5 ML SYRINGE ONE (14:39)
[2023-09-21] MEDS ORDERED: LIDOCAINE 1% INJ 10MG/ML (20 ML MDV) ONE (14:39)
[2023-09-21] MEDS ORDERED: MIDAZOLAM 2 MG/2 ML VIAL ONE (14:39)
[2023-09-21] MEDS ORDERED: NEOSTIGMINE 1 MG/ML 10 ML VIAL ONE (14:39)
[2023-09-21] MEDS ORDERED: SUCCINYLCHOLINE CHLORIDE 200 MG/10 ML VIAL IV ONE (14:39)
[2023-09-21] MEDS ORDERED: fentaNYL (PF) 50 MCG/ML 2 ML AMP ONE (14:39)
[2023-09-21] MEDS ORDERED: ROCURONIUM 10 MG/ML (5 ML VIAL) IV ONE (14:39)
[2023-09-21] MEDS ORDERED: ePHEDrine 50 MG/ML 1 ML VIAL ONE (14:39)
[2023-09-21] MEDS: BUPIVACAINE (PF) 0.25% 30 ML VIAL SQ ONE (15:01)
[2023-09-21] MEDS: HYDROmorphone 0.5 MG/0.5 ML SYRINGE IVP PRN (15:44)
[2023-09-21] MEDS: KETOROLAC 15 MG/ML 1 ML VIAL IVP ONE (15:45)
--- NOTE | 2023-09-21 15:53 | P.OP ---
Date of Procedure: 09/21/23 Preoperative Diagnosis: cholecystitis Postoperative Diagnosis: cholecystitis Procedure(s) Performed: laparoscopic cholecystectomy Anesthesia: MICHELLE Surgeon: Max Vang Estimated Blood Loss (ml): 5 Pathology: other (gallbladder) Condition: stable Disposition: PACU Description of Procedure: The patient was placed on the operating table. The patient received a general endotracheal tube anesthesia. The patients abdomen was prepped and draped in the usual sterile fashion. Through an infraumbilical stab incision, the fascia of the anterior abdominal wall was grasped with a pair of Kochers and then the Veress needle was placed in the peritoneal cavity. Position of the Veress needle was confirmed with positive drop test. The abdomen was then insufflated. After adequate insufflation, the 10 mm trocar was placed in the peritoneal cavity. Following this the laparoscope was placed in the peritoneal cavity. The patient was placed in the head-up, right side up position and then a 5 mm trocar was placed in the right lateral and right subcostal position under direct visualization. A 8 mm trocar was placed in the epigastric position. The gallbladder was grasped in the fundus and infundibulum. Traction on the gallbladder was placed in the lateral and the cephalad positions. The triangle of Calot was visualized.. The cystic duct was bluntly dissected until the union of the cystic duct and common bile duct was seen. A critical view of safety was achieved. The cystic duct was then divided and sealed with the Harmonic scissors. A PDS Endoloop was then placed throughout the cystic duct stump. The cystic artery divided and sealed with the Harmonic scissors. The gallbladder was then removed from the liver bed using Harmonic scissors. The gallbladder was then extracted through the epigastric port site. Operative field was checked for any bleeding spots and Harmonic scissors was used to coagulate the liver bed. The abdomen was irrigated. The trocars were removed. The skin was closed using interrupted 3-0 Vicryl suture. Dermabond dressing were applied. The patient tolerated the procedure well.
[2023-09-21 16:01] VITALS: TEMP 98.1
[2023-09-21 16:41] VITALS: RESP 16
[2023-09-21 17:19] VITALS: BP 126/78; PULSE 67
== END 2023-09-21 17:16 | disposition home or self-care (01) ==
LOC: OR 12:43
PROVIDERS: ATTEND Surgery
DX: K81.1 Chronic cholecystitis (principal); F17.210 Nicotine dependence, cigarettes, uncomplicated; F12.90 Cannabis use, unspecified, uncomplicated; Z79.899 Other long term (current) drug therapy
CPT/HCPCS: 47562; 88304; J2250; J0330; J1644; J1100; J2710; J0690; J2405; J2001; J3010; J1170 ×2; J1885; J2704; J0665

== ENCOUNTER 2024-10-11 07:51 | Day surgery (SDC) | payer OTHER ==
[2024-10-10 10:15] VITALS: BMI 27.6
[2024-10-11] MEDS: IV FLUID CONTINUATION 1,000 ML IV ONE (08:13)
[2024-10-11 08:17] VITALS: TEMP 97.6
[2024-10-11] MEDS: LACTATED RINGERS 1,000 ML IV SCH (08:22)
[2024-10-11] MEDS ORDERED: PROPOFOL 10 MG/ML 20 ML VIAL IV ONE (10:40)
--- NOTE | 2024-10-11 10:42 | P.GSHP ---
History of Present Illness H&P Date: 10/11/24 Chief Complaint: Gerd This a 64-year-old female who presents today for EGD. She has had issues with GERD. Past Medical History Past Medical History: Cancer, Chest Pain / Angina Additional Past Medical History / Comment(s): "I feel like I'm going to throw up sometimes when I eat." rt breast CA- radiation last taken 2017, chemo last taken 2017. "I'm having occasional chest pain and I'm seeing the heart in October." History of Any Multi-Drug Resistant Organisms: None Reported Past Surgical History: Adenoidectomy, Breast Surgery, Tonsillectomy Additional Past Surgical History / Comment(s): lumpectomy rt breast Past Anesthesia/Blood Transfusion Reactions: No Reported Reaction Smoking Status: Current every day smoker - Past Family History Mother Family Medical History: Cancer Additional Family Medical History / Comment(s): breast Medications and Allergies Home Medications Medication Instructions Recorded Confirmed Type Multivitamin/Iron/Folic Acid 1 tab PO HS 09/05/23 10/10/24 History [Centrum Women Tablet] Thiamine [Vitamin B-1] 100 mg PO DAILY tab 09/06/23 10/10/24 Rx Acetaminophen Tab [Tylenol] 650 mg PO Q6H #30 tab 09/21/23 10/10/24 Rx Ibuprofen [Motrin] 600 mg PO Q6HR PRN #40 tab 09/21/23 10/10/24 Rx Vitamin B12(Unknown Dose) 1 dose PO QAM 10/10/24 10/10/24 History Zquil(Unknown Dose) 1 dose PO HS PRN 10/10/24 10/10/24 History Allergies Allergy/AdvReac Type Severity Reaction Status Date / Time No Known Allergies Allergy Verified 10/10/24 10:02 Surgical - Exam Vital Signs Temp Pulse Resp BP Pulse Ox 97.6 F 71 16 147/86 98 10/11/24 08:16 10/11/24 08:16 10/11/24 08:16 10/11/24 08:16 10/11/24 08:16 - General well developed, well nourished, no distress - Eyes PERRL - ENT normal pinna - Neck no masses - Respiratory normal expansion - Cardiovascular Rhythm: regular - Abdomen Abdomen: soft, non tender Assessment and Plan Assessment: Gerd we will perform EGD.
--- NOTE | 2024-10-11 10:53 | P.OP ---
Date of Procedure: 10/11/24 Preoperative Diagnosis: Gerd Postoperative Diagnosis: Gerd Hiatal hernia Esophagitis Procedure(s) Performed: EGD Anesthesia: MAC Surgeon: Max Vang Pathology: other (Esophagus) Condition: stable Disposition: PACU Description of Procedure: The patient was placed on the endoscopy table in the lateral position. She received IV sedation. The gas was placed oropharynx passed in the esophagus and the stomach. Scope was placed through the pylorus. The 1st and 2nd portion of the duodenum appeared normal. Scope was then brought back to the antrum this. Normal. Scope was retroflexed in a moderate size hiatal hernia was visualized. The GE junction was at 38 cm. The distal esophagus appeared inflamed this was biopsied. The proximal esophagus appeared normal. Scope withdrawn the patient.
[2024-10-11 11:07] VITALS: BP 143/89; PULSE 82; RESP 16
== END 2024-10-11 11:37 | disposition home or self-care (01) ==
LOC: ORWHC2ENDO 07:51
PROVIDERS: ATTEND Surgery
DX: K21.00 Gastro-esophageal reflux disease with esophagitis, without bleeding (principal); K44.9 Diaphragmatic hernia without obstruction or gangrene; J44.9 Chronic obstructive pulmonary disease, unspecified; R25.1 Tremor, unspecified; Z79.51 Long term (current) use of inhaled steroids; Z79.899 Other long term (current) drug therapy; Z85.3 Personal history of malignant neoplasm of breast
CPT/HCPCS: 88305; 43239; J2704